=== PATIENT | male | born 1960 | race Caucasian/White ===

== ENCOUNTER 2018-04-03 08:43 | Emergency (ER) | payer OTHER, SELFPAY ==
[2018-04-03 08:51] VITALS: BP 154/79; PULSE 90; RESP 16; TEMP 36.7; O2SAT 97; BMI 25.1
--- NOTE | 2018-04-03 08:53 | DI.RAD.S_ITS ---
PROCEDURE: XR ELBOW RT MIN 3V INDICATIONS: injury pain TECHNIQUE: 3 views of the elbow were acquired. COMPARISON: None. FINDINGS: Bones: No fractures or dislocations. No suspicious bony lesions. Soft tissues: No elbow joint effusion. No suspicious soft tissue calcifications. IMPRESSION: No acute fracture. No osseous lesion. If symptoms and/or clinical suspicion for pathology persist, further assessment with repeat, or advanced imaging (e.g., CT, MRI, or bone scan) may be helpful for further assessment. Dictated by: Shira Patel M.D. on 04/03/2018 at 9:10 Approved by: Shira Patel M.D. on 04/03/2018 at 9:10
--- NOTE | 2018-04-03 09:37 | ED_ITS ---
HPI - Extremity Injury (Upper) General Chief Complaint: Weakness Stated Complaint: MSA,FELL HURT ELBOW Time Seen by Provider: 04/03/18 09:09 Source: patient Mode of arrival: ambulatory Limitations: no limitations History of Present Illness HPI narrative: Patient is a 57-year-old male who presents with right elbow injury. 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 He gets episodes where he has entire body spasms. He had 1 last night he has Ativan for this news to him tramadol but no longer has tramadol. During this episode he fell and injured his elbow. He is able to still move it there is an obvious contusion. No other injury on. They have a prescription for oxycodone which is ready for pickup today. MD complaint: injury to: right Related Data Home Medications Medication Instructions Recorded Confirmed ASPIRIN (Aspirin Low Dose) 81 mg PO HS #0 02/03/10 labetalol 100 mg PO BID 04/03/18 04/03/18 lisinopril 2.5 mg PO DAILY 04/03/18 04/03/18 lorazepam 0.5 - 1 mg PO DAILY PRN 04/03/18 04/03/18 Previous Rx's Medication Instructions Recorded gabapentin [Neurontin] 600 mg PO HSP PRN #90 tab 01/18/17 Allergies Allergy/AdvReac Type Severity Reaction Status Date / Time prednisone [PREDNISONE] Allergy Mild MOOD Verified 04/03/18 08:51 CHANGES GI clindamycin [CLINDAMYCIN] AdvReac Mild N/V Verified 04/03/18 08:51 Review of Systems Review of Systems All systems reviewed & are unremarkable except as noted in HPI and below Constitutional Reports frequent falls and Reports weakness (Diffuse from autonomic atrophy) Cardiovascular Denies chest pain, Denies irregular heart rhythm, Denies lightheadedness, Denies palpitations, Denies dyspnea, Denies dyspnea on exertion and Denies orthopnea Respiratory Denies cough, Denies dyspnea, Denies dyspnea on exertion and Denies wheezing Gastrointestinal Gastrointestinal: Denies abdominal pain, Denies change in bowel habits, Denies diarrhea, Denies nausea and Denies vomiting Genitourinary Denies hematuria, Denies flank pain, Denies urinary incontinence and Denies urinary urgency Musculoskeletal Reports as per HPI Integumentary/Breasts Reports as per HPI Neurologic Reports as per HPI, Reports frequent falls and Reports weakness (Diffuse from autonomic atrophy) Endocrine Denies palpitations Allergic/Immunologic Denies wheezing PFSH Medical History Autonomic disorder (Acute) Social History Smoking Status: Never smoker alcohol intake: former substance use type: does not use Exam Initial Vital Signs Initial Vital Signs: Vital Signs Temperature 98.1 F 04/03/18 08:51 Pulse Rate 90 04/03/18 08:51 Respiratory Rate 16 04/03/18 08:51 Blood Pressure 154/79 H 04/03/18 08:51 Pulse Oximetry 97 04/03/18 08:51 Const General: cooperative, frail appearing and ill appearing (Chronically ill) HENMT Head: normal to inspection and normocephalic Eyes General: appearance normal, both eyes and all related structures Neck Neck: normal visual inspection and full ROM Chest Chest: normal inspection of the chest Resp Effort & Inspection: normal respiratory effort Auscultation: clear to auscultation bilaterally, no rhonchi and no wheezes Cardio Rate: regular rate Rhythm: regular rhythm Heart Sounds: S1 normal and S2 normal GI Palpation: soft Skin General: no rashes or lesions noted, ecchymosis (Right elbow), No jaundice and No petechiae Extrem Right upper extremity: elbow/forearm Details: ecchymosis Other: Decreased strength in all extremities Course Orders Ordered: ED Orders 04/03/18 08:53 XR elbow RT min 3V Stat Vital Signs - 8 hr 04/03/18 08:51 Temperature 98.1 F Pulse Rate 90 Respiratory Rate 16 Blood Pressure 154/[address] [facility] - Extremity Injury (Upper) Imaging Data Right elbow x-ray: Radiologist's impression: PROCEDURE: XR ELBOW RT MIN 3V INDICATIONS: injury pain TECHNIQUE: 3 views of the elbow were acquired. COMPARISON: None. FINDINGS: Bones: No fractures or dislocations. No suspicious bony lesions. Soft tissues: No elbow joint effusion. No suspicious soft tissue calcifications. IMPRESSION: No acute fracture. No osseous lesion. If symptoms and/or clinical suspicion for pathology persist, further assessment with repeat, or advanced imaging (e.g. , CT, MRI, or bone scan) may be helpful for further assessment. Dictated by: Shira Patel M.D. on 04/03/2018 at 9:10 MDM Narrative Medical decision making narrative: Patient frequently has falls. He has episodes of intense pain and muscle spasm. He no longer has tramadol but has a prescription for oxycodone. Her command that he take it as prescribed. They are worried about respiratory depression. states that he has taken tramadol and Ativan multiple times without having any respiratory difficulty. I recommend that they may break it in half and take half a tablet each or combination but no more than 1 each. I suspect that he does have some tolerance. He gets some relief with marijuana but not much with CBD oil. When he has intense pain episodes he needs something stronger. Discharge Plan Departure Patient Disposition: Home Clinical Impression: Contusion of elbow, right Discharge Date/Time: 04/03/18 09:46 Interventions: ED Discharge Assessment Last Done: 04/03/18 09:41 Instructions: Contusion Activity Restrictions/Additional Instructions: *You have been diagnosed with right elbow contusion *What to do: Recommend taking a prescription for oxycodone and take as directed *Continue to take medications as directed *Follow up with your primary care provider in 2-3 days *Return to ER if you should have any new, worsening or concerning symptoms Prescriptions: No Action ASPIRIN (Aspirin Low Dose) 81 mg PO HS Qty: 0 RF: 0 gabapentin [Neurontin] 600 MG tablet 600 mg PO HSP PRNQty: 90 RF: 0 labetalol 200 mg tablet 100 mg PO BID RF: 0 lorazepam 0.5 mg tablet 0.5 - 1 mg PO DAILY PRN (Reason: Muscle Spasm) RF: 0 lisinopril 2.5 MG tablet 2.5 mg PO DAILY RF: 0 Referrals: Guy Frye MD [Primary Care Provider] -
== END 2018-04-03 09:46 | disposition home or self-care (01) ==
PROVIDERS: Emergency Provider Emergency Medicine; Family Provider Family Medicine; PCP Family Medicine
DX: S50.01XA Contusion of right elbow, initial encounter (principal); W18.30XA Fall on same level, unspecified, initial encounter
CPT/HCPCS: 73080; 99282; 99283